=== PATIENT | male | born 1965 | race Caucasian/White ===

== ENCOUNTER 2022-08-19 13:32 | Emergency (ER) | payer BC, OTHER ==
[2022-08-19] MEDS ORDERED: Ibuprofen 600 MG Tab PO ONE (13:59)
[2022-08-19] MEDS ORDERED: Acetaminophen 325 MG Tab PO ONE (13:59)
[2022-08-19 14:44] LABS: CORONAVIRUS COVID-19 NAA POSITIVE (NEGATIVE); INFLUENZA A NAA NEGATIVE (NEGATIVE); INFLUENZA B NAA NEGATIVE (NEGATIVE); RESPIRATORY SYNCYTIAL VIR NAA NEGATIVE (NEGATIVE)
== END 2022-08-19 15:37 | disposition home or self-care (01) ==
LOC: MW.ED 13:32
DX: U07.1 COVID-19 (principal); I10 Essential (primary) hypertension; E78.00 Pure hypercholesterolemia, unspecified; Z79.899 Other long term (current) drug therapy
CPT/HCPCS: 0241U; 87651; 99283; A9270